=== PATIENT | female | born 1960 | race Caucasian/White ===

== ENCOUNTER → 2019-04-12 | Outpatient (CLI) | payer OTHER ==
[2019-04-12 10:22] LABS: BASO # 0.1 10^3/uL (0.0-0.2); BASO % 1.2 % (0.0-1.0); EOS # 0.3 10^3/uL (0.0-0.5); EOS % 4.9 % (0.0-3.0); HEMATOCRIT 40.8 % (36.0-47.0); HEMOGLOBIN 13.4 g/dl (12.0-15.5); LYMPH # 2.7 10^3/uL (1.5-5.0); MEAN CORPUSCULAR HEMOGLOBIN 29.9 pg (27.0-33.0); MEAN CORPUSCULAR HGB CONC 32.8 g/dl (32.0-36.5); MEAN CORPUSCULAR VOLUME 91.1 fl (80.0-96.0); MONO # 0.5 10^3/uL (0.0-0.8); MONO % 8.8 % (0.0-5.0); NEUTROPHILS # 2.3 10^3/uL (1.5-8.5); NEUTROPHILS % 38.9 % (36.0-66.0); PLATELET COUNT, AUTOMATED 217 10^3/uL (150-450); RED BLOOD COUNT 4.48 10^6/uL (4.00-5.40); WHITE BLOOD COUNT 5.9 10^3/uL (4.0-10.0)
[2019-04-12 11:03] LABS: ALBUMIN 3.7 GM/DL (3.2-5.2); ALT/SGPT 33 U/L (12-78); BILIRUBIN,TOTAL 0.5 MG/DL (0.2-1.0); BLOOD UREA NITROGEN 15 MG/DL (7-18); CARBON DIOXIDE LEVEL 30 MEQ/L (21-32); CHLORIDE LEVEL 107 MEQ/L (98-107); CHOLESTEROL LEVEL 188 MG/DL (<200); CHOLESTEROL RISK RATIO 2.043 (<5); CREATININE FOR GFR 0.62 MG/DL (0.55-1.30); FREE T4 0.91 NG/DL (0.76-1.46); GLOMERULAR FILTRATION RATE > 60.0 (>51); GLUCOSE, FASTING 94 MG/DL (70-100); HDL CHOLESTEROL 92 MG/DL (>40); LDL CHOLESTEROL 71 MG/DL (<100); NON-HDL-C 96 MG/DL; POTASSIUM SERUM 4.4 MEQ/L (3.5-5.1); SODIUM LEVEL 141 MEQ/L (136-145); TRIGLYCERIDES LEVEL 127 MG/DL (<150)
== END ==
LOC: M LAB 10:00
PROVIDERS: ATTEND Family Medicine
DX: Z00.00 Encounter for general adult medical examination without abnormal findings (principal)

== ENCOUNTER → 2020-11-17 | Outpatient (CLI) | payer OTHER ==
[2020-11-17 17:31] LABS: BASO # 0.1 10^3/uL (0.0-0.2); BASO % 1.3 % (0.0-1.0); EOS # 0.3 10^3/uL (0.0-0.5); EOS % 5.5 % (0.0-3.0); HEMATOCRIT 42.6 % (36.0-47.0); HEMOGLOBIN 14.1 g/dl (12.0-15.5); LYMPH # 3.3 10^3/uL (1.5-5.0); LYMPH % 53.7 % (24.0-44.0); MEAN CORPUSCULAR HEMOGLOBIN 31.1 pg (27.0-33.0); MEAN CORPUSCULAR HGB CONC 33.1 g/dl (32.0-36.5); MEAN CORPUSCULAR VOLUME 93.8 fl (80.0-96.0); MONO # 0.6 10^3/uL (0.0-0.8); MONO % 9.8 % (2.0-8.0); NEUTROPHILS # 1.8 10^3/uL (1.5-8.5); NEUTROPHILS % 29.4 % (36.0-66.0); PLATELET COUNT, AUTOMATED 237 10^3/uL (150-450); RED BLOOD COUNT 4.54 10^6/uL (4.00-5.40); WHITE BLOOD COUNT 6.1 10^3/uL (4.0-10.0)
[2020-11-17 18:00] LABS: ALBUMIN 3.8 GM/DL (3.2-5.2); ALT/SGPT 42 U/L (12-78); BILIRUBIN,TOTAL 0.3 MG/DL (0.2-1.0); BLOOD UREA NITROGEN 19 MG/DL (7-18); CALCIUM LEVEL 9.5 MG/DL (8.5-10.1); CARBON DIOXIDE LEVEL 28 MEQ/L (21-32); CHLORIDE LEVEL 104 MEQ/L (98-107); CREATININE FOR GFR 0.71 MG/DL (0.55-1.30); FREE T4 0.91 NG/DL (0.76-1.46); GLOMERULAR FILTRATION RATE > 60.0 (>51); GLUCOSE, FASTING 124 MG/DL (70-100); POTASSIUM SERUM 4.3 MEQ/L (3.5-5.1); RHEUMATOID FACTOR QUANT < 10.0 IU/ML (<15.0); SODIUM LEVEL 139 MEQ/L (136-145); TOTAL PROTEIN 7.3 GM/DL (6.4-8.2)
[2020-11-17 18:53] LABS: ERYTHROCYTE SEDIMENTATION RATE 15 mm/hr (0-30)
== END ==
LOC: M LAB 17:04
PROVIDERS: ATTEND Nurse Practitioner Family
DX: R21 Rash and other nonspecific skin eruption (principal)

== ENCOUNTER → 2022-03-08 | Outpatient (CLI) | payer OTHER ==
[2022-03-08 12:27] LABS: ALBUMIN 3.6 GM/DL (3.2-5.2); ALT/SGPT 27 U/L (12-78); BILIRUBIN,TOTAL 0.4 MG/DL (0.2-1.0); BLOOD UREA NITROGEN 13 MG/DL (7-18); CALCIUM LEVEL 9.3 MG/DL (8.8-10.2); CARBON DIOXIDE LEVEL 29 MEQ/L (21-32); CHLORIDE LEVEL 105 MEQ/L (98-107); CHOLESTEROL LEVEL 215 MG/DL (<200); CHOLESTEROL RISK RATIO 2.067 (<5); CREATININE FOR GFR 0.62 MG/DL (0.55-1.30); GLOMERULAR FILTRATION RATE > 60.0 (>45); GLUCOSE, FASTING 90 MG/DL (70-100); HDL CHOLESTEROL 104 MG/DL (>40); LDL CHOLESTEROL 94 MG/DL (<100); NON-HDL-C 111 MG/DL; POTASSIUM SERUM 4.5 MEQ/L (3.5-5.1); SODIUM LEVEL 139 MEQ/L (136-145); TOTAL PROTEIN 7.1 GM/DL (6.4-8.2); TRIGLYCERIDES LEVEL 83 MG/DL (<150)
== END ==
LOC: M LAB 10:24
PROVIDERS: ATTEND Nurse Practitioner Family
DX: Z00.00 Encounter for general adult medical examination without abnormal findings (principal)

== ENCOUNTER → 2022-09-04 | Outpatient (CLI) | payer BC ==
[2022-09-04 18:32] LABS: FREE T4 1.26 NG/DL (0.89-1.76); THYROID STIMULATING HORMONE 4.114 uIU/ML (0.55-4.78); TOTAL 25(OH) VITAMIN D 32.2 NG/ML (20.0-100.0)
== END ==
LOC: M RAD 17:22
PROVIDERS: ATTEND Nurse Practitioner Family
DX: J43.9 Emphysema, unspecified (principal); R05.1 Acute cough; R53.83 Other fatigue

== ENCOUNTER → 2023-03-30 | Outpatient (CLI) | payer BC | LOC: M RAD 07:40 | PROVIDERS: ATTEND Registered Nurse | DX: Z87.891 Personal history of nicotine dependence (principal) ==

== ENCOUNTER → 2023-06-04 | Outpatient (REF) | payer BC | LOC: M LAB REF 17:08 | PROVIDERS: ATTEND Registered Nurse | DX: N89.8 Other specified noninflammatory disorders of vagina (principal) ==

== ENCOUNTER → 2023-08-19 | Outpatient (CLI) | payer BC | LOC: M RAD 11:52 | PROVIDERS: ATTEND Physician Assistant | DX: M79.642 Pain in left hand (principal); M19.042 Primary osteoarthritis, left hand ==

== ENCOUNTER → 2024-07-03 | Outpatient (CLI) | payer BC | LOC: M RAD 07:38 | PROVIDERS: ATTEND Nurse Practitioner Adult Health | DX: Z87.891 Personal history of nicotine dependence (principal) ==

== ENCOUNTER → 2025-05-04 | Outpatient (CLI) | payer BC | LOC: M RAD 17:17 | PROVIDERS: ATTEND Nurse Practitioner Adult Health | DX: R06.2 Wheezing (principal) ==

== ENCOUNTER → 2025-07-09 | Outpatient (CLI) | payer BC ==
[~2025-07-09] MED LIST: ISOVUE-370 76% 100 ML VIAL As Ordered ONE
[2025-07-09 13:20] LABS: CALCIUM LEVEL 8.8 MG/DL (8.3-10.6); CARBON DIOXIDE LEVEL 28 MMOL/L (20-31); CHLORIDE LEVEL 106 MMOL/L (98-107); CREATININE FOR GFR 0.57 MG/DL (0.55-1.30); GLOMERULAR FILTRATION RATE > 90.0 (>45); POTASSIUM SERUM 4.0 MMOL/L (3.5-5.1); SODIUM LEVEL 140 MMOL/L (136-145)
== END ==
LOC: M RAD 12:29
PROVIDERS: ATTEND Nurse Practitioner Family
DX: R10.32 Left lower quadrant pain (principal); N28.1 Cyst of kidney, acquired; D25.9 Leiomyoma of uterus, unspecified
CPT/HCPCS: 36415; 74177; 80048; Q9967